=== PATIENT | male | born 1990 | race Hispanic/Latino ===

== ENCOUNTER 2019-10-29 07:17 | Emergency (ER) | payer OTHER ==
[~2019-10-29] VITALS: Ht 172.7 cm; Wt 89.8 kg
[2019-10-29] MEDS ORDERED: NAPROSYN500 MG PO (07:34)
[2019-10-29] MEDS ORDERED: TESSALON PERLE100 MG PO (07:34)
[2019-10-29 08:06] VITALS: BP 116/63
== END 2019-10-29 07:45 | disposition home or self-care (01) ==
LOC: FSED 07:17
DX: J06.9 Acute upper respiratory infection, unspecified (principal)
CPT/HCPCS: 99282

== ENCOUNTER 2020-06-08 19:08 | Emergency (ER) | payer OTHER ==
[~2020-06-08] VITALS: Ht 175.3 cm; Wt 86.2 kg
[~2020-06-08 19:08] MED LIST: NAPROSYN500 MG PO; TESSALON PERLE100 MG PO
[2020-06-08] MEDS ORDERED: KEFLEX500 MG PO (19:45)
--- NOTE | 2020-06-08 19:54 | Emergency Department Note ---
History of Present Illnes History of Present Illness Chief Complaint: COVID PUI History of Present Illness This is a 29 year old male . 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 Historian: Patient Arrival Mode: Car Onset (how long ago): day(s) (2) Location: throat Quality: burning Radiation: Denies non-radiation, Denies back, Denies neck, Denies extremity, Denies abdomen, Denies periumbilical, Denies flank, Denies proximal, Denies distal, Denies other Severity: moderate Duration (how long): day(s) (2) Timing of current episode: constant Progression: waxing and waning Chronicity: new Context: Denies recent illness, Denies recent surgery, Denies recent immobilization, Denies recent travel, Denies trauma/injury, Denies new medications, Denies hx of DVT/PE, Denies non-compliance w/ medications, Denies other Relieving factors: none Exacerbating factors: none Associated symptoms: Reports cough, Reports fever/chills; Denies denies other symptoms, Denies confusion, Denies chest pain, Denies diaphoresis, Denies headaches, Denies loss of appetite, Denies malaise, Denies nausea/vomiting, Denies rash, Denies seizure, Denies shortness of breath, Denies syncope, Denies weakness, Denies other Treatments prior to arrival: none Past Medical/Family History Physician Review I have reviewed the patient's past medical and family history. Any updates have been documented here. Past Medical History Recent Fever: Yes (101 THIS AM) Clinical Suspicion of Infectio: No New/Unexplained Change in Ment: No Past Medical History: None Past Surgical History: None Social History Smoking Cessation: Never Smoker Alcohol Use: Occasional Any Illegal Drug Use: No Physically hurt or threatened: No Other Any Pre-Existing Lines (PICC,: No Review of Systems Review of Systems Constitutional: Reports as per HPI, Reports fever EENTM: Reports no symptoms Cardiovascular: Reports no symptoms Respiratory: Reports as per HPI Gastrointestinal: Reports no symptoms Genitourinary: Reports no symptoms Musculoskeletal: Reports no symptoms Integumentary: Reports no symptoms Neurological: Reports no symptoms Psychological: Reports no symptoms Endocrine: Reports no symptoms Hematological/Lymphatic: Reports no symptoms Physical Exam Related Data Allergies: Coded Allergies: No Known Allergies (Unverified , 10/29/19) Triage Vital Signs Vital Signs Date Time Temp Pulse Resp B/P (MAP) Pulse Ox O2 Delivery O2 Flow Rate FiO2 06/08/20 19:26 97.5 70 18 178/99 98 Room Air Vital signs reviewed: Yes Physical Exam CONSTITUTIONAL Constitutional: Present well-developed, Present well-nourished HENT HENT: Present normocephalic, Present atraumatic, Present oropharynx clear/moist, Present nose normal HENT L/R: Present left ext ear normal, Present right ext ear normal EYES Eyes: Reports PERRL, Reports conjunctivae normal NECK Neck: Present ROM normal PULMONARY Pulmonary: Present effort normal, Present breath sounds normal CARDIOVASCULAR Cardiovascular: Present regular rhythm, Present heart sounds normal, Present capillary refill normal, Present normal rate GASTROINTESTINAL Abdominal: Present soft, Present nontender, Present bowel sounds normal GENITOURINARY Genitourinary: Present exam deferred SKIN Skin: Present warm, Present dry MUSCULOSKELETAL Musculoskeletal: Present ROM normal NEUROLOGICAL Neurological: Present alert, Present oriented x 3, Present no gross motor or sensory deficits PSYCHOLOGICAL Psychological: Present mood/affect normal, Present judgement normal Assessment & Plan Medical Decision Making MDM bronchitis///covid Reassessment Reassessment time: 19:53 Reassessment better Assessment & Plan Final Impression: (1) Acute bronchitis (2) Exposure to COVID-19 virus Depart Disposition: HOME, SELF-CARE Last Vital Signs Date Time Temp Pulse Resp B/P (MAP) Pulse Ox O2 Delivery O2 Flow Rate FiO2 06/08/20 19:26 97.5 70 18 178/99 98 Room Air Home Meds Active Scripts Cephalexin Monohydrate (KEFLEX) 500 Mg Capsule, 500 MG PO TID for 7 Days Prov:THOMAS SAUCEDA MD 06/08/20 Naproxen (NAPROSYN) 500 Mg Tablet, 500 MG PO BID PRN for pain for 7 Days, #15 Prov:ROXANN ARCE MD 10/29/19 Benzonatate (TESSALON PERLE) 100 Mg Capsule, 1 TAB PO TID PRN for cough for 5 Days, #15 Prov:ROXANN ARCE MD 10/29/19 THOMAS SAUCEDA MD Jun 08, 2020 19:54
[2020-06-08 19:55] VITALS: BP 178/99
== END 2020-06-08 19:55 | disposition home or self-care (01) ==
LOC: FSED 19:44
DX: J20.9 Acute bronchitis, unspecified (principal); R05 Cough; Z20.828 Contact with and (suspected) exposure to other viral communicable diseases
CPT/HCPCS: 99282